=== PATIENT | female | born 1980 | race Asian ===

== ENCOUNTER 2017-08-28 05:32 | Day surgery (SDC) | payer OTHER ==
[~2017-08-28 05:32] MED LIST: CEFAZOLIN 2 GM/50 ML (PMX) 50 ML IVPB; SOD CHLORIDE 0.9% 1,000 ML IV
[2017-08-28] MEDS: BUPIVACAINE 0.25% (MPF) 30 ML INJ (07:25)
[2017-08-28] MEDS ORDERED: GLYCOPYRROLATE 0.4 MG INJ (07:26)
[2017-08-28] MEDS ORDERED: ROCURONIUM 50 MG INJ (07:26)
[2017-08-28] MEDS ORDERED: PROPOFOL 20 ML (07:26)
[2017-08-28] MEDS ORDERED: NEOSTIGMINE 3 MG/3 ML SYRINGE (07:26)
[2017-08-28] MEDS ORDERED: CEFAZOLIN 1 GM INJ (07:26)
[2017-08-28] MEDS ORDERED: FENTAnyl 50 MCG/ML VIAL (07:29)
[2017-08-28] MEDS ORDERED: MIDAZOLAM 1 MG/ML 2 ML INJ (07:29)
[2017-08-28] MEDS ORDERED: ONDANSETRON 4 MG INJ (07:29)
[2017-08-28] MEDS ORDERED: DEXAMETHASONE 4 MG/ML 1 ML INJ (07:29)
[2017-08-28] MEDS ORDERED: SUGAMMADEX SODIUM 200 MG/2 ML VIAL IV (08:28)
[2017-08-28] MEDS ORDERED: IBUPROFEN 800 MG TAB PO (09:00)
== END 2017-08-28 10:12 | disposition home or self-care (01) ==
LOC: SDS 05:32
DX: M67.432 Ganglion, left wrist (principal); E11.9 Type 2 diabetes mellitus without complications
CPT/HCPCS: 25111; 82962; 88304